=== PATIENT | male | born 1960 | race Caucasian/White ===

== ENCOUNTER 2019-01-25 12:33 | Emergency (ER) | payer BC ==
[2019-01-25] MEDS ORDERED: traMADol TAB* 50 MG PO ONE (16:42)
--- NOTE | 2019-01-25 17:28 | ED ---
Lower Extremity - HPI Summary HPI Summary: Patient presents to the ED after a fall last evening. He states he fell down a spiral staircase. He is currently presenting with right shoulder pain as well as left leg pain. He is endorsing posterior left upper leg pain over the hamstring. He is also s/o abrasion to the R lower ext. he denies hitting his head or LOC. He is acting appropriately per family at bedside. He states he has been unable to ambulate due to pain in the leg. He denies any pain to the hips. Denies any pain to the bilateral knees are bilateral ankles. Denies any pain to the elbows or wrists. There is no facial pain. He denies the use of blood thinners. He has been taking ibuprofen and Tylenol without much relief. - History of Current Complaint Chief Complaint: EDFall Stated Complaint: INJURIES FROM FALLS PER EMS Time Seen by Provider: 01/25/19 12:49 Hx Obtained From: Patient Onset of Pain: Immediate Onset/Duration: Hours Severity Initially: Moderate Severity Currently: Moderate Pain Intensity: 1 Pain Scale Used: 0-10 Numeric Timing: Constant Location: Is Discrete @ - left hamstring, R shoulder Associated Signs And Symptoms: Negative: Swelling, Redness, Bruising Aggravating Factor(s): Standing, Ambulation Alleviating Factor(s): Rest Able to Bear Weight: No - Risk Factors Gout Risk Factors: Negative DVT Risk Factors: Negative Septic Arthritis Risk Factor: Negative - Allergies/Home Medications Allergies/Adverse Reactions: Allergies Allergy/AdvReac Type Severity Reaction Status Date / Time No Known Allergies Allergy Verified 01/25/19 14:47 PMH/Surg Hx/FS Hx/Imm Hx Previously Healthy: Yes - Surgical History Surgery Procedure, Year, and Place: CABG 2009 - Immunization History Hx Pertussis Vaccination: No Immunizations Up to Date: Yes Infectious Disease History: No Infectious Disease History: Denies: Traveled Outside the [place] in Last 30 Days - Social History Occupation: Employed Full-time Lives: With Family Alcohol Use: Daily Hx Substance Use: No Substance Use Type: Reports: None Hx Tobacco Use: Yes Smoking Status (MU): Former Smoker Review of Systems Constitutional: Negative Negative: Fever, Chills, Fatigue, Skin Diaphoresis Negative: Palpitations, Chest Pain Negative: Shortness Of Breath, Cough Genitourinary: Negative Positive: no symptoms reported, see HPI Positive: Myalgia - left hamstring - pain with palpation. Negative: Arthralgia Negative: Rash, Bruising Neurological: Negative All Other Systems Reviewed And Are Negative: Yes Physical Exam Triage Information Reviewed: Yes Vital Signs On Initial Exam: Initial Vitals Temp Pulse Resp BP Pulse Ox 97.4 F 79 16 116/75 92 01/25/19 12:42 01/25/19 12:42 01/25/19 12:42 01/25/19 12:42 01/25/19 12:42 Vital Signs Reviewed: Yes Appearance: Positive: Well-Appearing, Well-Nourished Skin: Positive: Warm, Skin Color Reflects Adequate Perfusion, Other - abrasion to the R lower exg Head/Face: Positive: Normal Head/Face Inspection Eyes: Positive: EOMI, WILMER, Conjunctiva Clear Neck: Positive: Supple, No Lymphadenopathy Respiratory/Lung Sounds: Positive: Clear to Auscultation, Breath Sounds Present Cardiovascular: Positive: RRR, Pulses are Symmetrical in both Upper and Lower Extremities Musculoskeletal: Positive: Strength/ROM Intact, Other - hamstring injury/pain / fluid noted Neurological: Positive: Sensory/Motor Intact, Alert, Oriented to Person Place, Time, Speech Normal Psychiatric: Positive: Affect/Mood Appropriate AVPU Assessment: Alert Diagnostics - Vital Signs Vital Signs Temp Pulse Resp BP Pulse Ox 01/25/19 12:42 97.4 F 79 16 116/75 92 - Laboratory Lab Statement: Any lab studies that have been ordered have been reviewed, and results considered in the medical decision making process. Lower Extremity Course/Dx - Course Course Of Treatment: During the course of treatment, the patient is evaluated for an acute injury after a fall. X-rays are obtained of the right shoulder and left hip/pelvis and femur. These are unremarkable. On physical examination , patient is unable to flex and extend at the hip or abduct or adduct at the left hip. He is endorsing an 8/10 pain. He is able to flex, extend, abduct and adduct at the bilateral shoulders. No crepitus noted. There is a small abrasion to the right lower extremity measuring approximately 2 cm in length. Bleeding is controlled. Some abrasions to the bilateral forearms and right knee as well. This patient continues to be unable to ambulate, a CT of the lower external he was performed. Swelling and edema rising from the left hamstring muscle presumably due to a tear from the ischial tuberosity. Likely hematoma and fluid surrounds the hamstrings. Discussed with Dr. Black who recommends crutches, pain control, non weight-bearing and ibuprofen until follow up with ortho this week. - Diagnoses Provider Diagnoses: Abrasion, Fall, Trauma Discharge ED - Sign-Out/Discharge Documenting (check all that apply): Patient Departure Patient Received Moderate/Deep Sedation with Procedure: No - Discharge Plan Condition: Stable Disposition: HOME Prescriptions: traMADol TAB* [Ultram*] 50 mg PO Q8H PRN #12 tab MDD 3 PRN Reason: Pain Patient Education Materials: Hamstring Injury (ED) Forms: *Work Release Referrals: No Primary Care Phys,NOPCP [Primary Care Provider] - Additional Instructions: Tramadol 50 mg 3 times daily as needed for discomfort Ibuprofen 600 mg 3 times daily on opposite schedule Heat to the area Do not bear any weight to the area Use crutches - Billing Disposition and Condition Condition: STABLE Disposition: Home
[2019-01-25 17:48] VITALS: BP 118/69
== END 2019-01-25 17:10 | disposition home or self-care (01) ==
LOC: ED 12:33
DX: S80.812A Abrasion, left lower leg, initial encounter (principal); T14.8XXA Other injury of unspecified body region, initial encounter; W10.9XXA Fall (on) (from) unspecified stairs and steps, initial encounter; Y92.9 Unspecified place or not applicable; Z95.1 Presence of aortocoronary bypass graft; Z87.891 Personal history of nicotine dependence; M25.511 Pain in right shoulder
CPT/HCPCS: 99284; A9270-GY